=== PATIENT | male | born 1960 | race Caucasian/White ===

== ENCOUNTER 2019-06-22 16:05 | Emergency (ER) | payer MEDICAID ==
[~2019-06-22] VITALS: Ht 172.7 cm; Wt 81.2 kg
[2019-06-22 16:11] VITALS: BP 112/68
--- NOTE | 2019-06-22 16:16 | NUR ---
PATIENT AMBULATED TO BED 2.
--- NOTE | 2019-06-22 16:18 | NUR ---
58/M BIB C/O CHRONIC MID LOWER BACK PAIN THAT WORSENED YESTERDAY. DENIES INJRUY/TRUAMA. PAIN 07/25. +DYSURIA. PMH- DENIES.RX- BACLOFEN AND TYLENOL TODAY.PT DENIES N/V/D; SKIN IS PINK/WARM/DRY; AAOX4 WITH EVEN AND STEADY GAIT; PATIENT POSITIONED FOR COMFORT; HOB ELEVATED; BEDRAILS UP X1; BED DOWN. ER MD MADE AWARE OF PT STATUS.
--- NOTE | 2019-06-22 16:51 | NUR ---
Patient being evaluated by DR BUSTAMANTE at bedside.
[2019-06-22] MEDS: KETOROLAC 30 MG/ML VIAL IM ONE (17:05)
--- NOTE | 2019-06-22 17:07 | NUR ---
PT TAKEN TO X RAY VIA W/C, ACCOMPANIED BY BODY DIE MAKER.
[2019-06-22] MEDS: DIAZEPAM 5 MG TAB PO ONE (17:27)
--- NOTE | 2019-06-22 17:50 | NUR ---
Patient discharged with v/s stable. Written and verbal after care instructions given and explained. Patient alert, oriented and verbalized understanding of instructions. Ambulatory with steady gait. All questions addressed prior to discharge. ID band removed. Patient advised to follow up with PMD. Rx of VALIUM & NAPROSYN given. Patient educated on indication of medication including possible reaction and side effects. Opportunity to ask questions provided and answered.
[2019-06-22 17:52] VITALS: BP 119/75
== END 2019-06-22 17:50 | disposition home or self-care (01) ==
LOC: MED 16:05
DX: S39.012A Strain of muscle, fascia and tendon of lower back, initial encounter (principal); X58.XXXA Exposure to other specified factors, initial encounter; Y93.89 Activity, other specified; Y92.89 Other specified places as the place of occurrence of the external cause; Y99.8 Other external cause status
CPT/HCPCS: 72100; 81002; 96372; 99284; J1885; 99283

== ENCOUNTER 2019-06-27 14:28 | Emergency (ER) | payer MEDICAID ==
[~2019-06-27] VITALS: Ht 160 cm; Wt 85.3 kg
[2019-06-27 14:35] VITALS: BP 129/79
--- NOTE | 2019-06-27 14:40 | NUR ---
PT TAKEN TO BED 11.
--- NOTE | 2019-06-27 14:45 | NUR ---
PATIENT PRESENTS TO ED WITH C/O LOWER BACK PAIN 03/25 AND DULL X6 DAYS. PT WAS SEEN AT [facility] 06/23/19 WITH THE SAME SYMPTOMS AND WAS D/C WITH NAPROSYN AND VALILUM. PT STATES THE MEDICATION IS GONE AND HE IS STILL HAVING BACK PAIN. DENIES INJURY. VSS; PATIENT POSITIONED FOR COMFORT; HOB ELEVATED; BEDRAILS UP X2; BED DOWN. ER MD MADE AWARE OF PT STATUS.
[2019-06-27] MEDS ORDERED: KETOROLAC 30 MG/ML VIAL IM ONE ×2 (15:45→15:50)
[2019-06-27 16:02] VITALS: BP 129/79
--- NOTE | 2019-06-27 16:02 | NUR ---
Patient discharged with v/s stable. Written and verbal after care instructions given and explained. Rx of FLEXERIL, ACETAMINOPHEN, BENGAY given. Patient educated on indication of medication including possible reaction and side effects. All questions addressed prior to discharge. ID band removed. Patient advised to follow up with PMD.
== END 2019-06-27 16:02 | disposition home or self-care (01) ==
LOC: MED 14:28
DX: S39.012A Strain of muscle, fascia and tendon of lower back, initial encounter (principal); X58.XXXA Exposure to other specified factors, initial encounter; Y93.89 Activity, other specified; Y92.89 Other specified places as the place of occurrence of the external cause; Y99.8 Other external cause status
CPT/HCPCS: 96372; 99283; J1885

== ENCOUNTER 2019-08-14 11:31 | Emergency (ER) | payer MEDICAID ==
[~2019-08-14] VITALS: Ht 172.7 cm; Wt 82.6 kg
[2019-08-14 11:39] VITALS: BP 122/95
--- NOTE | 2019-08-14 11:42 | NUR ---
PT TO BED 12 WITH STEADY GAIT
--- NOTE | 2019-08-14 12:04 | NUR ---
58/M PRESENTS TO ED C/O L EYE REDNESS X MONDAY ALSO C/O HEADACHE AND NECK PAIN FOR SEVERAL YEARS. DENIES INJURY. DENIES ANY CHANGES IN VISION. HX DENIES
[2019-08-14] MEDS ORDERED: TETRACAINE HCL/PF 0.5% OPTH 4 ML BTL OP ONE (12:15)
[2019-08-14] MEDS ORDERED: KETOROLAC 30 MG/ML VIAL IVP ONE (12:15)
[2019-08-14] MEDS ORDERED: KETOROLAC 30 MG/ML VIAL IM ONE (12:30)
[2019-08-14] MEDS ORDERED: FLUORESCEIN OPTH STRIP 0.6 MG OP ONE (13:10)
[2019-08-14] MEDS ORDERED: FLUORESCEIN OPTH STRIP 1 MG ONE (13:12)
--- NOTE | 2019-08-14 13:13 | NUR ---
JUANCHO FONTANA AT BEDSIDE.
[2019-08-14 13:31] VITALS: BP 116/89
== END 2019-08-14 13:31 | disposition home or self-care (01) ==
LOC: MED 11:31
DX: M54.2 Cervicalgia (principal); H11.32 Conjunctival hemorrhage, left eye
CPT/HCPCS: 96372; 99283; J1885

== ENCOUNTER 2023-11-28 09:32 | Emergency (ER) | payer BC, MEDICAID ==
[~2023-11-28] VITALS: Ht 167.6 cm; Wt 77.1 kg
[2023-11-28 10:12] VITALS: BP 155/96; PULSE 83; RESP 16; TEMP 97.4; O2SAT 98
[2023-11-28] MEDS ORDERED: NIRM1TAB9 PO (12:06)
[2023-11-28 12:16] VITALS: BP 136/80; PULSE 79; RESP 13; TEMP 98; O2SAT 99
[2023-11-28 12:24] LABS: FLU A ANTIGEN negative (NEGATIVE); FLU B ANTIGEN negative (NEGATIVE)
== END 2023-11-28 12:16 | disposition home or self-care (01) ==
LOC: MED 09:32
DX: B34.9 Viral infection, unspecified (principal); Z20.822 Contact with and (suspected) exposure to COVID-19; Z79.899 Other long term (current) drug therapy
CPT/HCPCS: 71045; 99284